=== PATIENT | male | born 1970 | race Two or more races ===

== ENCOUNTER 2017-12-02 16:20 | Emergency (ER) | payer OTHER ==
[~2017-12-02] VITALS: Ht 172.7 cm; Wt 107.0 kg
[~2017-12-02 16:20] MED LIST: CORTIZONE-1099 GM TP; CYCLOBENZAPRINE10 MG PO; ELOCON45 G1 TP; ENALAPRIL MALEA10 MG; FLEXERIL10 MG PO; FLEXERYL; ULTRAM50 MG; ULTRAM50 MG PO; VASOTEC10 MG; VASOTEC10 MG PO; VASOTEC20 M1; VASOTEC20 M1 PO
== END 2017-12-02 18:06 | disposition home or self-care (01) ==
LOC: ER 16:20
DX: M54.5 Low back pain (principal)

== ENCOUNTER 2017-12-10 11:40 | Emergency (ER) | payer OTHER ==
[~2017-12-10] VITALS: Ht 172.7 cm; Wt 106.6 kg
[2017-12-10] MEDS ORDERED: LISINOPRIL20 MG PO (11:46)
== END 2017-12-10 13:57 | disposition home or self-care (01) ==
LOC: ER 11:40
DX: M54.5 Low back pain (principal)

== ENCOUNTER 2017-12-19 07:41 | Emergency (ER) | payer OTHER ==
[~2017-12-19] VITALS: Ht 172.7 cm; Wt 104.3 kg
[~2017-12-19 07:41] MED LIST changes: +LISINOPRIL20 MG PO
== END 2017-12-19 09:45 | disposition home or self-care (01) ==
LOC: ER 07:41
DX: M54.5 Low back pain (principal)

== ENCOUNTER 2017-12-25 08:06 | Emergency (ER) | payer OTHER ==
[~2017-12-25] VITALS: Ht 172.7 cm; Wt 104.3 kg
[2017-12-25] MEDS ORDERED: KETO10TA2 PO (09:00)
[2017-12-25] MEDS ORDERED: NORFLEX100MG PO (09:00)
[2017-12-25] MEDS ORDERED: NEURONTIN800 MG PO (09:02)
[2017-12-25] MEDS ORDERED: ULTRAM50 MG PO (09:02)
[2017-12-25] MEDS ORDERED: TUSSI PRES-B L120 M1 PO (09:04)
[2017-12-29] MEDS ORDERED: NEURONTIN800 MG PO (11:43)
[2017-12-29] MEDS ORDERED: TRAMADOL HCL50 MG PO (11:43)
== END 2017-12-25 09:18 | disposition home or self-care (01) ==
LOC: ER 08:06
DX: M54.5 Low back pain (principal)

== ENCOUNTER → 2018-01-01 | Emergency (ER) | payer OTHER ==
[~2018-01-01] MED LIST changes: +KETO10TA2 PO; +NEURONTIN800 MG PO; +NORFLEX100MG PO; +TRAMADOL HCL50 MG PO; +TUSSI PRES-B L120 M1 PO
== END | disposition left against medical advice (07) ==
LOC: ER 11:42
DX: Z53.20 Procedure and treatment not carried out because of patient's decision for unspecified reasons (principal)

== ENCOUNTER 2018-01-12 14:27 | Emergency (ER) | payer OTHER ==
[~2018-01-12] VITALS: Ht 172.7 cm; Wt 107.0 kg
[2018-01-13] MEDS ORDERED: NEURONTIN800 MG PO (13:37)
[2018-01-13] MEDS ORDERED: LISINOPRIL20 MG PO (13:37)
== END 2018-01-12 22:21 | disposition home or self-care (01) ==
LOC: ER 14:27
DX: L02.512 Cutaneous abscess of left hand (principal)

== ENCOUNTER 2018-01-13 11:25 | Emergency (ER) | payer OTHER ==
[~2018-01-13] VITALS: Ht 175.3 cm; Wt 79.4 kg
[2018-01-13] MEDS ORDERED: LISINOPRIL20 MG PO (13:37)
[2018-01-13] MEDS ORDERED: NEURONTIN800 MG PO (13:37)
== END 2018-01-13 13:43 | disposition home or self-care (01) ==
LOC: ER 11:25
DX: M54.89 Other dorsalgia (principal)

== ENCOUNTER → 2018-12-22 | Emergency (ER) | payer OTHER ==
[~2018-12-22] VITALS: Ht 172.7 cm; Wt 104.3 kg
== END | disposition home or self-care (01) ==
LOC: ER 20:56
DX: M54.5 Low back pain (principal)

== ENCOUNTER 2019-01-31 11:55 | Emergency (ER) | payer OTHER ==
[~2019-01-31] VITALS: Ht 172.7 cm; Wt 104.3 kg
[2019-01-31] MEDS ORDERED: augmentin PO (18:14)
[2019-01-31] MEDS ORDERED: ULTRACET PO (18:14)
== END 2019-01-31 19:41 | disposition home or self-care (01) ==
LOC: ER 11:55
DX: J34.0 Abscess, furuncle and carbuncle of nose (principal)

== ENCOUNTER 2019-04-03 07:35 | Emergency (ER) | payer OTHER ==
[~2019-04-03] VITALS: Ht 167.6 cm; Wt 111.6 kg
[~2019-04-03 07:35] MED LIST changes: +ULTRACET PO; +augmentin PO
== END 2019-04-03 08:42 | disposition home or self-care (01) ==
LOC: ER 07:35
DX: M54.5 Low back pain (principal)

== ENCOUNTER 2019-06-15 05:05 | Emergency (ER) | payer OTHER ==
[~2019-06-15] VITALS: Ht 172.7 cm; Wt 113.4 kg
[2019-06-15] MEDS ORDERED: LISINOPRIL20 MG (05:25)
[2019-06-15] MEDS ORDERED: NORFLEX100MG PO (07:14)
[2019-06-15] MEDS ORDERED: MOBIC15 MG PO (07:14)
[2019-06-15] MEDS ORDERED: MUPIROCIN22 GM TOP (07:14)
[2019-06-15] MEDS ORDERED: RANITIDINE HCL300 MG PO (07:15)
== END 2019-06-15 07:36 | disposition home or self-care (01) ==
LOC: ER 05:05
DX: M54.5 Low back pain (principal)

== ENCOUNTER 2019-06-28 01:13 | Emergency (ER) | payer OTHER ==
[~2019-06-28] VITALS: Ht 152.4 cm; Wt 108.9 kg
[~2019-06-28 01:13] MED LIST changes: +LISINOPRIL20 MG; +MOBIC15 MG PO; +MUPIROCIN22 GM TOP; +RANITIDINE HCL300 MG PO
[2019-06-28] MEDS ORDERED: MEDROLPACK PO (06:36)
[2019-06-28] MEDS ORDERED: KETO10TA2 PO (06:36)
== END 2019-06-28 06:40 | disposition home or self-care (01) ==
LOC: ER 01:13
DX: M25.562 Pain in left knee (principal); M25.561 Pain in right knee

== ENCOUNTER 2019-06-28 16:36 | Emergency (ER) | payer OTHER ==
[~2019-06-28] VITALS: Ht 172.7 cm; Wt 115.2 kg
[~2019-06-28 16:36] MED LIST changes: +MEDROLPACK PO
== END 2019-06-28 19:15 | disposition home or self-care (01) ==
LOC: ER 16:36
DX: S76.012A Strain of muscle, fascia and tendon of left hip, initial encounter (principal); S86.812A Strain of other muscle(s) and tendon(s) at lower leg level, left leg, initial encounter; S86.811A Strain of other muscle(s) and tendon(s) at lower leg level, right leg, initial encounter; X50.0XXA Overexertion from strenuous movement or load, initial encounter; Y93.89 Activity, other specified; Y92.098 Other place in other non-institutional residence as the place of occurrence of the external cause; Y99.8 Other external cause status

== ENCOUNTER → 2019-07-18 | Emergency (ER) | payer OTHER ==
[~2019-07-18] VITALS: Ht 167.6 cm; Wt 158.8 kg
[~2019-07-18] MED LIST changes: +ORPHENADRINE C100 MG PO
== END | disposition home or self-care (01) ==
LOC: ER 00:27
DX: M54.5 Low back pain (principal)

== ENCOUNTER 2020-01-08 19:25 | Emergency (ER) | payer OTHER ==
[~2020-01-08] VITALS: Ht 172.7 cm; Wt 120.7 kg
[2020-01-08] MEDS ORDERED: NEURONTIN300 MG (19:54)
== END 2020-01-09 00:45 | disposition home or self-care (01) ==
LOC: ER 19:25
DX: M51.26 Other intervertebral disc displacement, lumbar region (principal)

== ENCOUNTER 2020-01-16 07:35 | Emergency (ER) | payer OTHER ==
[~2020-01-16] VITALS: Ht 172.7 cm; Wt 120.7 kg
[~2020-01-16 07:35] MED LIST changes: +NEURONTIN300 MG
[2020-01-16] MEDS ORDERED: VOLTAREN-XR100 MG PO (09:57)
[2020-01-16] MEDS ORDERED: CYCLOBENZAPRINE10 MG PO (09:57)
[2020-01-16] MEDS ORDERED: ORPHENADRINE C100 MG PO (09:57)
== END 2020-01-16 10:05 | disposition home or self-care (01) ==
LOC: ER 07:35
DX: M54.5 Low back pain (principal)

== ENCOUNTER 2020-01-22 09:38 | Emergency (ER) | payer OTHER ==
[~2020-01-22] VITALS: Ht 172.7 cm; Wt 120.7 kg
[~2020-01-22 09:38] MED LIST changes: +VOLTAREN-XR100 MG PO
== END 2020-01-22 11:04 | disposition home or self-care (01) ==
LOC: ER 09:38
DX: S33.5XXA Sprain of ligaments of lumbar spine, initial encounter (principal); X50.0XXA Overexertion from strenuous movement or load, initial encounter; Y93.89 Activity, other specified; Y92.098 Other place in other non-institutional residence as the place of occurrence of the external cause; Y99.8 Other external cause status

== ENCOUNTER 2020-03-17 07:45 | Emergency (ER) | payer OTHER ==
[~2020-03-17] VITALS: Ht 172.7 cm; Wt 111.1 kg
== END 2020-03-17 11:10 | disposition home or self-care (01) ==
LOC: ER 07:45
DX: L03.115 Cellulitis of right lower limb (principal); S90.561S Insect bite (nonvenomous), right ankle, sequela; W57.XXXS Bitten or stung by nonvenomous insect and other nonvenomous arthropods, sequela

== ENCOUNTER 2020-03-18 17:20 | Emergency (ER) | payer OTHER ==
[~2020-03-18] VITALS: Ht 172.7 cm; Wt 111.1 kg
== END 2020-03-19 11:15 | disposition left against medical advice (07) ==
LOC: ER 17:20
DX: L03.115 Cellulitis of right lower limb (principal); I87.2 Venous insufficiency (chronic) (peripheral)

== ENCOUNTER 2020-03-20 11:45 | Inpatient (IN) | payer OTHER ==
[~2020-03-20] VITALS: Ht 175.3 cm; Wt 113.4 kg
== END 2020-03-22 09:04 | disposition left against medical advice (07) | DRG 603 ==
LOC: ER 11:45 → SEC-K 15:26 → SURH 15:26
PROVIDERS: ADMIT Internal Medicine
PROC: 8E0ZXY6 Isolation (ICD-10-PCS; principal; 2020-03-20)
DX: L03.115 Cellulitis of right lower limb (principal); S90.861A Insect bite (nonvenomous), right foot, initial encounter; I10 Essential (primary) hypertension; E66.09 Other obesity due to excess calories

== ENCOUNTER 2020-03-24 21:42 | Emergency (ER) | payer OTHER ==
[~2020-03-24] VITALS: Ht 172.7 cm; Wt 113.4 kg
== END 2020-03-25 01:30 | disposition home or self-care (01) ==
LOC: ER 21:42
DX: L03.115 Cellulitis of right lower limb (principal)

== ENCOUNTER → 2020-06-05 | Emergency (ER) | payer OTHER ==
[~2020-06-05] VITALS: Ht 172.7 cm; Wt 111.1 kg
== END | disposition left against medical advice (07) ==
LOC: ER 06:52
DX: Z53.20 Procedure and treatment not carried out because of patient's decision for unspecified reasons (principal)

== ENCOUNTER 2020-06-27 11:17 | Emergency (ER) | payer OTHER ==
[~2020-06-27] VITALS: Ht 172.7 cm; Wt 111.1 kg
[2020-06-27] MEDS ORDERED: LASIX20 MG PO (11:27)
[2020-06-27] MEDS ORDERED: MUPIROCIN22 GM TOP (14:18)
[2020-06-27] MEDS ORDERED: KETO10TA2 PO (14:18)
[2020-06-27] MEDS ORDERED: AMOX-CLAV 875-1 EACH PO (14:18)
== END 2020-06-27 14:34 | disposition home or self-care (01) ==
LOC: ER 11:17
DX: H05.012 Cellulitis of left orbit (principal); Z03.818 Encounter for observation for suspected exposure to other biological agents ruled out

== ENCOUNTER 2020-07-11 12:32 | Emergency (ER) | payer OTHER ==
[~2020-07-11] VITALS: Ht 172.7 cm; Wt 113.4 kg
[~2020-07-11 12:32] MED LIST changes: +AMOX-CLAV 875-1 EACH PO; +LASIX20 MG PO
[2020-07-11] MEDS ORDERED: KETO10TA2 PO (13:08)
[2020-07-11] MEDS ORDERED: NORFLEX100MG PO (13:08)
== END 2020-07-11 14:29 | disposition home or self-care (01) ==
LOC: ER 12:32
DX: M54.5 Low back pain (principal)

== ENCOUNTER → 2020-07-14 | Emergency (ER) | payer OTHER ==
[~2020-07-14] VITALS: Ht 172.7 cm; Wt 113.4 kg
== END | disposition left against medical advice (07) ==
LOC: ER 08:51
DX: M62.830 Muscle spasm of back (principal)

== ENCOUNTER → 2020-09-11 | Emergency (ER) | payer OTHER ==
[~2020-09-11] VITALS: Ht 172.7 cm; Wt 117.9 kg
[~2020-09-11] MED LIST changes: +PERCOCET 5-3251 EACH PO
== END | disposition home or self-care (01) ==
LOC: ER 16:45
DX: M54.5 Low back pain (principal)

== ENCOUNTER 2020-09-16 14:30 | Emergency (ER) | payer OTHER ==
[~2020-09-16] VITALS: Ht 172.7 cm; Wt 117.9 kg
[~2020-09-16 14:30] MED LIST changes: -PERCOCET 5-3251 EACH PO
[2020-09-16] MEDS ORDERED: PERCOCET 5-3251 EACH PO (17:31)
== END 2020-09-16 17:59 | disposition home or self-care (01) ==
LOC: ER 14:30
DX: M54.5 Low back pain (principal)

== ENCOUNTER → 2020-09-22 | Emergency (ER) | payer OTHER ==
[~2020-09-22] MED LIST changes: +NABUMETONE750 MG PO; +PERCOCET 5-3251 EACH PO
== END | disposition left against medical advice (07) ==
LOC: ER 06:55
DX: Z53.20 Procedure and treatment not carried out because of patient's decision for unspecified reasons (principal)

== ENCOUNTER 2020-09-24 09:48 | Emergency (ER) | payer OTHER ==
[~2020-09-24] VITALS: Ht 172.7 cm; Wt 117.9 kg
[~2020-09-24 09:48] MED LIST changes: -NABUMETONE750 MG PO
[2020-09-24] MEDS ORDERED: PERCOCET 5-3251 EACH PO (11:05)
== END 2020-09-24 11:19 | disposition home or self-care (01) ==
LOC: ER 09:48
DX: M54.89 Other dorsalgia (principal)

== ENCOUNTER 2020-10-01 06:57 | Emergency (ER) | payer OTHER ==
[~2020-10-01] VITALS: Ht 172.7 cm; Wt 117.9 kg
[2020-10-01] MEDS ORDERED: PERCOCET 5-3251 EACH PO (09:19)
[2020-10-01] MEDS ORDERED: CYCLOBENZAPRINE10 MG PO (09:19)
[2020-10-01] MEDS ORDERED: NABUMETONE750 MG PO (09:19)
== END 2020-10-01 09:25 | disposition home or self-care (01) ==
LOC: ER 06:57
DX: M54.5 Low back pain (principal)

== ENCOUNTER 2020-10-13 11:28 | Emergency (ER) | payer OTHER ==
[~2020-10-13] VITALS: Ht 172.7 cm; Wt 116.1 kg
[~2020-10-13 11:28] MED LIST changes: +NABUMETONE750 MG PO
== END 2020-10-13 13:43 | disposition home or self-care (01) ==
LOC: ER 11:28
DX: M54.5 Low back pain (principal)

== ENCOUNTER 2020-10-30 11:10 | Emergency (ER) | payer OTHER ==
[~2020-10-30] VITALS: Ht 172.7 cm; Wt 117.9 kg
[2020-10-30] MEDS ORDERED: PERCOCET 5-3251 EACH PO (16:30)
[2020-10-30] MEDS ORDERED: VOLTAREN-XR100 MG PO (16:30)
[2020-10-30] MEDS ORDERED: SKELAXIN800 MG PO (16:30)
== END 2020-10-30 16:59 ==
LOC: ER 11:10
DX: M54.41 Lumbago with sciatica, right side (principal); M54.42 Lumbago with sciatica, left side

== ENCOUNTER 2020-11-15 16:28 | Emergency (ER) | payer OTHER ==
[~2020-11-15] VITALS: Ht 172.7 cm; Wt 117.9 kg
[~2020-11-15 16:28] MED LIST changes: +SKELAXIN800 MG PO
[2020-11-15] MEDS ORDERED: BACTRIM DS TAB1 EACH PO (17:54)
[2020-11-15] MEDS ORDERED: MUPIROCIN1 G1 TOP (17:54)
[2020-11-15] MEDS ORDERED: CYCLOBENZAPRINE10 MG PO (17:55)
[2020-11-15] MEDS ORDERED: DICLOFENAC SODI75 MG PO (17:55)
== END 2020-11-15 18:40 | disposition home or self-care (01) ==
LOC: ER 16:28
DX: L04.2 Acute lymphadenitis of upper limb (principal)

== ENCOUNTER 2020-12-10 14:25 | Emergency (ER) | payer OTHER ==
[~2020-12-10] VITALS: Ht 172.7 cm; Wt 117.9 kg
[~2020-12-10 14:25] MED LIST changes: +BACTRIM DS TAB1 EACH PO; +DICLOFENAC SODI75 MG PO; +MUPIROCIN1 G1 TOP
[2020-12-10] MEDS ORDERED: ZESTRIL20 MG PO (14:57)
== END 2020-12-10 17:54 | disposition home or self-care (01) ==
LOC: ER 14:25
DX: M43.16 Spondylolisthesis, lumbar region (principal)

== ENCOUNTER 2020-12-13 09:01 | Emergency (ER) | payer OTHER ==
[~2020-12-13] VITALS: Ht 172.7 cm; Wt 74.8 kg
[~2020-12-13 09:01] MED LIST changes: +ZESTRIL20 MG PO
[2020-12-13] MEDS ORDERED: SKELAXIN800 MG PO (10:26)
[2020-12-13] MEDS ORDERED: MEDROLPACK PO (10:26)
[2020-12-13] MEDS ORDERED: PERCOCET 5-3251 EACH PO (10:26)
[2020-12-13] MEDS ORDERED: KETO10TA2 PO (10:26)
== END 2020-12-13 10:34 | disposition home or self-care (01) ==
LOC: ER 09:01
DX: M54.5 Low back pain (principal)

== ENCOUNTER 2020-12-18 09:52 | Emergency (ER) | payer OTHER ==
[~2020-12-18] VITALS: Ht 172.7 cm; Wt 120.2 kg
[2020-12-18] MEDS ORDERED: PERCOCET 10-321 EACH (10:17)
[2020-12-18] MEDS ORDERED: PERCOCET 5-3251 EACH PO (10:44)
[2020-12-18] MEDS ORDERED: PEPCID AC20 MG PO (10:44)
== END 2020-12-18 10:53 | disposition home or self-care (01) ==
LOC: ER 09:52
DX: M54.5 Low back pain (principal)

== ENCOUNTER 2021-01-08 08:19 | Emergency (ER) | payer OTHER ==
[~2021-01-08] VITALS: Ht 172.7 cm; Wt 117.9 kg
[~2021-01-08 08:19] MED LIST changes: +PEPCID AC20 MG PO; +PERCOCET 10-321 EACH
[2021-01-08] MEDS ORDERED: HYDROCHLOROTH12.5 MG (08:38)
[2021-01-08] MEDS ORDERED: PERCOCET 5-3251 EACH PO (08:58)
[2021-01-08] MEDS ORDERED: NABUMETONE750 MG PO (08:58)
== END 2021-01-08 09:20 | disposition home or self-care (01) ==
LOC: ER 08:19
DX: M54.5 Low back pain (principal)

== ENCOUNTER 2021-01-21 13:32 | Emergency (ER) | payer OTHER ==
[~2021-01-21] VITALS: Ht 172.7 cm; Wt 117.9 kg
[~2021-01-21 13:32] MED LIST changes: +HYDROCHLOROTH12.5 MG
[2021-01-21] MEDS ORDERED: PERCOCET 5-3251 EACH PO (15:50)
== END 2021-01-21 16:17 | disposition home or self-care (01) ==
LOC: ER 13:32
DX: M54.5 Low back pain (principal)

== ENCOUNTER 2021-02-06 01:26 | Emergency (ER) | payer OTHER ==
[~2021-02-06] VITALS: Ht 180.3 cm; Wt 74.8 kg
[2021-02-06] MEDS ORDERED: PERCOCET 5-3251 EACH PO (02:07)
[2021-02-06] MEDS ORDERED: LISINOPRIL20 MG PO (02:14)
[2021-02-06] MEDS ORDERED: PEPCID40 MG PO (02:14)
[2021-02-06] MEDS ORDERED: NABUMETONE750 MG PO (02:14)
[2021-02-11] MEDS ORDERED: MUCINEX DM ER1 EAC1 PO (17:21)
[2021-02-11] MEDS ORDERED: PERCOCET 5-3251 EACH PO (17:21)
[2021-02-11] MEDS ORDERED: KETOCONAZOLE 2%30 GM TOP (17:21)
[2021-02-11] MEDS ORDERED: BETAMETHASONE D15 G5 TOP (17:21)
== END 2021-02-06 02:19 | disposition home or self-care (01) ==
LOC: ER 01:26
DX: M54.5 Low back pain (principal)

== ENCOUNTER 2021-02-08 15:03 | Emergency (ER) | payer OTHER ==
[~2021-02-08] VITALS: Ht 172.7 cm; Wt 117.9 kg
[~2021-02-08 15:03] MED LIST changes: +PEPCID40 MG PO
[2021-02-11] MEDS ORDERED: MUCINEX DM ER1 EAC1 PO (17:21)
[2021-02-11] MEDS ORDERED: PERCOCET 5-3251 EACH PO (17:21)
[2021-02-11] MEDS ORDERED: BETAMETHASONE D15 G5 TOP (17:21)
[2021-02-11] MEDS ORDERED: KETOCONAZOLE 2%30 GM TOP (17:21)
== END 2021-02-08 17:55 | disposition home or self-care (01) ==
LOC: ER 15:03
DX: M54.5 Low back pain (principal)

== ENCOUNTER 2021-02-25 10:22 | Emergency (ER) | payer OTHER ==
[~2021-02-25] VITALS: Ht 172.7 cm; Wt 117.9 kg
[~2021-02-25 10:22] MED LIST changes: +BETAMETHASONE D15 G5 TOP; +KETOCONAZOLE 2%30 GM TOP; +MUCINEX DM ER1 EAC1 PO
[2021-02-25] MEDS ORDERED: HYDROCHLOROTH12.5 MG PO (11:02)
[2021-02-25] MEDS ORDERED: PERCOCET 5-3251 EACH PO (11:02)
== END 2021-02-25 11:16 | disposition home or self-care (01) ==
LOC: ER 10:22
DX: M54.5 Low back pain (principal)

== ENCOUNTER 2021-03-04 07:41 | Emergency (ER) | payer OTHER ==
[~2021-03-04] VITALS: Ht 172.7 cm; Wt 117.9 kg
[~2021-03-04 07:41] MED LIST changes: +HYDROCHLOROTH12.5 MG PO
[2021-03-04] MEDS ORDERED: RELAFEN DS1000 MG (07:52)
[2021-03-04] MEDS ORDERED: PERCOCET 5-3251 EACH PO (09:02)
[2021-03-04] MEDS ORDERED: CLOTRIMAZOLE/BE15 GM TOP (09:08)
== END 2021-03-04 09:13 | disposition home or self-care (01) ==
LOC: ER 07:41
DX: M54.5 Low back pain (principal)

== ENCOUNTER → 2021-03-11 | Emergency (ER) | payer OTHER ==
[~2021-03-11] VITALS: Ht 172.7 cm; Wt 115.7 kg
[~2021-03-11] MED LIST changes: +CLOTRIMAZOLE/BE15 GM TOP; +RELAFEN DS1000 MG
== END | disposition left against medical advice (07) ==
LOC: ER 12:04
DX: Z53.20 Procedure and treatment not carried out because of patient's decision for unspecified reasons (principal)

== ENCOUNTER 2021-03-20 07:06 | Emergency (ER) | payer OTHER ==
[~2021-03-20] VITALS: Ht 180.3 cm; Wt 117.9 kg
[2021-03-20] MEDS ORDERED: ULTRAM50 MG PO (08:31)
== END 2021-03-20 08:46 | disposition home or self-care (01) ==
LOC: ER 07:06
DX: S39.012A Strain of muscle, fascia and tendon of lower back, initial encounter (principal); X50.0XXA Overexertion from strenuous movement or load, initial encounter; Y93.89 Activity, other specified; Y92.89 Other specified places as the place of occurrence of the external cause; Y99.8 Other external cause status

== ENCOUNTER 2021-04-04 07:29 | Emergency (ER) | payer OTHER ==
[~2021-04-04] VITALS: Ht 172.7 cm; Wt 117.9 kg
[2021-04-04] MEDS ORDERED: CYCLOBENZAPRINE10 MG PO (09:29)
[2021-04-04] MEDS ORDERED: DICLOFENAC SOD100 MG PO (09:29)
[2021-04-04] MEDS ORDERED: PERCOCET 5-3251 EACH PO (09:29)
== END 2021-04-04 09:43 | disposition home or self-care (01) ==
LOC: ER 07:29
DX: M25.562 Pain in left knee (principal); M25.561 Pain in right knee

== ENCOUNTER → 2021-04-06 | Emergency (ER) | payer OTHER ==
[~2021-04-06] VITALS: Ht 172.7 cm; Wt 102.1 kg
[~2021-04-06] MED LIST changes: +ASA81 MG PO; +DICLOFENAC SOD100 MG PO
== END | disposition left against medical advice (07) ==
LOC: ER 08:27
DX: Z53.20 Procedure and treatment not carried out because of patient's decision for unspecified reasons (principal)

== ENCOUNTER 2021-04-10 08:26 | Emergency (ER) | payer OTHER ==
[~2021-04-10] VITALS: Ht 172.7 cm; Wt 115.7 kg
[~2021-04-10 08:26] MED LIST changes: -ASA81 MG PO
[2021-04-10] MEDS ORDERED: HYDROCHLOROTH12.5 MG PO (17:06)
[2021-04-10] MEDS ORDERED: PERCOCET 5-3251 EACH PO (17:07)
== END 2021-04-10 18:56 | disposition home or self-care (01) ==
LOC: ER 08:26
DX: I87.2 Venous insufficiency (chronic) (peripheral) (principal); R60.0 Localized edema

== ENCOUNTER 2021-04-14 22:49 | Emergency (ER) | payer OTHER ==
[~2021-04-14] VITALS: Ht 172.7 cm; Wt 115.7 kg
[2021-04-15] MEDS ORDERED: LASIX20 MG PO (05:25)
[2021-04-15] MEDS ORDERED: PERCOCET 5-3251 EACH PO (08:57)
== END 2021-04-15 05:34 | disposition home or self-care (01) ==
LOC: ER 22:49
DX: R60.0 Localized edema (principal)

== ENCOUNTER 2021-04-15 08:42 | Emergency (ER) | payer OTHER ==
[~2021-04-15] VITALS: Ht 172.7 cm; Wt 115.7 kg
[2021-04-15] MEDS ORDERED: PERCOCET 5-3251 EACH PO (08:57)
== END 2021-04-15 09:31 | disposition home or self-care (01) ==
LOC: ER 08:42
DX: M79.662 Pain in left lower leg (principal); M79.661 Pain in right lower leg; M54.89 Other dorsalgia

== ENCOUNTER 2021-04-18 02:35 | Emergency (ER) | payer OTHER ==
[~2021-04-18] VITALS: Ht 172.7 cm; Wt 115.7 kg
[2021-04-18] MEDS ORDERED: ASA81 MG PO ×2 (08:37→08:38)
== END 2021-04-18 08:55 | disposition home or self-care (01) ==
LOC: ER 02:35
DX: R60.0 Localized edema (principal)

== ENCOUNTER 2021-04-21 08:59 | Emergency (ER) | payer OTHER ==
[~2021-04-21] VITALS: Ht 180.3 cm; Wt 127.0 kg
[~2021-04-21 08:59] MED LIST changes: +ASA81 MG PO
== END 2021-04-21 12:36 | disposition home or self-care (01) ==
LOC: ER 08:59
DX: M54.42 Lumbago with sciatica, left side (principal); M54.41 Lumbago with sciatica, right side

== ENCOUNTER → 2021-04-24 | Emergency (ER) | payer OTHER ==
[~2021-04-24] VITALS: Ht 172.7 cm; Wt 122.5 kg
[~2021-04-24] MED LIST changes: +ECOTRIN81 MG PO; +PEPCID AC10 MG PO
== END | disposition home or self-care (01) ==
LOC: ER 15:55
DX: M54.5 Low back pain (principal)

== ENCOUNTER 2021-05-05 14:48 | Emergency (ER) | payer OTHER ==
[~2021-05-05] VITALS: Ht 172.7 cm; Wt 122.0 kg
[~2021-05-05 14:48] MED LIST changes: -ECOTRIN81 MG PO; -PEPCID AC10 MG PO
[2021-05-05] MEDS ORDERED: ECOTRIN81 MG PO (15:15)
[2021-05-05] MEDS ORDERED: PEPCID AC10 MG PO (15:15)
== END 2021-05-05 15:55 | disposition home or self-care (01) ==
LOC: ER 14:48
DX: M54.5 Low back pain (principal)

== ENCOUNTER 2021-05-10 10:14 | Emergency (ER) | payer OTHER ==
[~2021-05-10] VITALS: Ht 172.7 cm; Wt 119.3 kg
[~2021-05-10 10:14] MED LIST changes: +ECOTRIN81 MG PO; +PEPCID AC10 MG PO
[2021-05-10] MEDS ORDERED: NABUMETONE500 MG PO (12:59)
[2021-05-10] MEDS ORDERED: LASIX20 MG PO (12:59)
== END 2021-05-10 13:51 | disposition home or self-care (01) ==
LOC: ER 10:14
DX: S33.5XXA Sprain of ligaments of lumbar spine, initial encounter (principal); X50.0XXA Overexertion from strenuous movement or load, initial encounter; Y93.89 Activity, other specified; Y92.89 Other specified places as the place of occurrence of the external cause; Y99.8 Other external cause status

== ENCOUNTER → 2021-05-13 | Emergency (ER) | payer OTHER ==
[~2021-05-13] VITALS: Ht 172.7 cm; Wt 117.5 kg
[~2021-05-13] MED LIST changes: +NABUMETONE500 MG PO; +NEURONTIN800 MG
== END | disposition left against medical advice (07) ==
LOC: ER 19:19
DX: Z53.20 Procedure and treatment not carried out because of patient's decision for unspecified reasons (principal)

== ENCOUNTER 2021-06-15 08:09 | Emergency (ER) | payer OTHER ==
[~2021-06-15] VITALS: Ht 172.7 cm; Wt 119.7 kg
[~2021-06-15 08:09] MED LIST changes: -NEURONTIN800 MG
[2021-06-15] MEDS ORDERED: NEURONTIN800 MG (08:21)
== END 2021-06-15 11:28 | disposition home or self-care (01) ==
LOC: ER 08:09
DX: M54.5 Low back pain (principal); M25.561 Pain in right knee

== ENCOUNTER 2021-06-25 23:58 | Emergency (ER) | payer OTHER ==
[~2021-06-25] VITALS: Ht 162.6 cm; Wt 120.7 kg
[~2021-06-25 23:58] MED LIST changes: +NEURONTIN800 MG
[2021-06-26] MEDS ORDERED: MOBIC15 MG PO (06:05)
[2021-06-26] MEDS ORDERED: LASIX20 MG PO (06:05)
== END 2021-06-26 06:32 | disposition home or self-care (01) ==
LOC: ER 23:58
DX: M79.662 Pain in left lower leg (principal); M79.661 Pain in right lower leg; M79.89 Other specified soft tissue disorders; R60.9 Edema, unspecified; I99.9 Unspecified disorder of circulatory system

== ENCOUNTER 2021-08-05 21:03 | Emergency (ER) | payer OTHER ==
[~2021-08-05] VITALS: Ht 172.7 cm; Wt 122.5 kg
[2021-08-05] MEDS ORDERED: PERCOCET 5-3251 EACH PO (22:09)
[2021-08-05] MEDS ORDERED: PEPCID AC20 MG PO (22:25)
== END 2021-08-05 22:44 | disposition home or self-care (01) ==
LOC: ER 21:03
DX: I87.2 Venous insufficiency (chronic) (peripheral) (principal); R60.0 Localized edema

== ENCOUNTER 2021-08-21 03:09 | Emergency (ER) | payer OTHER ==
[~2021-08-21] VITALS: Ht 172.7 cm; Wt 12.2 kg
== END 2021-08-21 10:20 | disposition left against medical advice (07) ==
LOC: ER 03:09
DX: M51.26 Other intervertebral disc displacement, lumbar region (principal); I10 Essential (primary) hypertension

== ENCOUNTER 2021-09-02 02:02 | Emergency (ER) | payer OTHER ==
[~2021-09-02] VITALS: Ht 172.7 cm; Wt 124.3 kg
[2021-09-02] MEDS ORDERED: KETO10TA2 PO (03:06)
[2021-09-02] MEDS ORDERED: ORPHENADRINE C100 MG PO (03:06)
[2021-09-02] MEDS ORDERED: CILOSTAZOL50 MG PO (03:11)
== END 2021-09-02 03:31 ==
LOC: ER 02:02
DX: M54.59 Other low back pain (principal)

== ENCOUNTER 2021-09-09 18:07 | Emergency (ER) | payer OTHER ==
[~2021-09-09] VITALS: Ht 172.7 cm; Wt 122.5 kg
[~2021-09-09 18:07] MED LIST changes: +CILOSTAZOL50 MG PO
[2021-09-09] MEDS ORDERED: PERCOCET 5-3251 EACH PO (22:31)
== END 2021-09-09 22:47 | disposition home or self-care (01) ==
LOC: ER 18:07
DX: M62.830 Muscle spasm of back (principal)

== ENCOUNTER 2021-09-17 07:19 | Emergency (ER) | payer OTHER ==
[~2021-09-17] VITALS: Ht 172.7 cm; Wt 123.8 kg
[2021-09-17] MEDS ORDERED: CYCLOBENZAPRINE10 MG PO (09:02)
[2021-09-17] MEDS ORDERED: KETO10TA2 PO (09:02)
[2021-09-17] MEDS ORDERED: SKELAGESIC PO (09:02)
== END 2021-09-17 09:27 ==
LOC: ER 07:19
DX: M62.830 Muscle spasm of back (principal)

== ENCOUNTER 2021-10-06 19:32 | Emergency (ER) | payer OTHER ==
[~2021-10-06] VITALS: Ht 172.7 cm; Wt 112.5 kg
[~2021-10-06 19:32] MED LIST changes: +SKELAGESIC PO
== END 2021-10-06 23:26 | disposition home or self-care (01) ==
LOC: ER 19:32
DX: M54.50 Low back pain, unspecified (principal); I10 Essential (primary) hypertension

== ENCOUNTER → 2022-04-12 | Emergency (ER) | payer OTHER ==
[~2022-04-12] VITALS: Ht 172.7 cm; Wt 113.4 kg
== END | disposition left against medical advice (07) ==
LOC: ER 07:56
DX: Z53.21 Procedure and treatment not carried out due to patient leaving prior to being seen by health care provider (principal)

== ENCOUNTER 2022-04-16 07:27 | Emergency (ER) | payer OTHER ==
[~2022-04-16] VITALS: Ht 172.7 cm; Wt 113.4 kg
[2022-04-16] MEDS ORDERED: NEURONTIN800 MG PO (07:40)
== END 2022-04-16 09:53 | disposition home or self-care (01) ==
LOC: ER 07:27
DX: M51.27 Other intervertebral disc displacement, lumbosacral region (principal); I10 Essential (primary) hypertension

== ENCOUNTER → 2023-04-12 | Emergency (ER) | payer OTHER ==
[~2023-04-12] VITALS: Ht 165.1 cm; Wt 113.4 kg
== END | disposition home or self-care (01) ==
LOC: ER 08:57
DX: M54.50 Low back pain, unspecified (principal); I10 Essential (primary) hypertension

== ENCOUNTER → 2023-04-21 | Emergency (ER) | payer OTHER ==
[~2023-04-21] VITALS: Ht 172.7 cm; Wt 117.9 kg
== END | disposition left against medical advice (07) ==
LOC: ER 14:34
DX: Z53.21 Procedure and treatment not carried out due to patient leaving prior to being seen by health care provider (principal)

== ENCOUNTER → 2023-04-25 | Emergency (ER) | payer OTHER ==
[~2023-04-25] VITALS: Ht 165.1 cm; Wt 117.9 kg
[~2023-04-25] MED LIST changes: +LASIX20 MG; +NORVASC2.5 M1
== END | disposition left against medical advice (07) ==
LOC: ER 04:30
DX: Z53.21 Procedure and treatment not carried out due to patient leaving prior to being seen by health care provider (principal)

== ENCOUNTER 2023-06-20 01:28 | Emergency (ER) | payer OTHER ==
[~2023-06-20] VITALS: Ht 172.7 cm; Wt 123.8 kg
[2023-06-20] MEDS ORDERED: LASIX20 MG PO (07:41)
[2023-06-20] MEDS ORDERED: DICLOFENAC POTA50 MG PO (07:42)
== END 2023-06-20 07:53 | disposition home or self-care (01) ==
LOC: ER 01:28
DX: I87.2 Venous insufficiency (chronic) (peripheral) (principal); R60.0 Localized edema; I10 Essential (primary) hypertension

== ENCOUNTER → 2023-06-23 | Emergency (ER) | payer OTHER ==
[~2023-06-23] VITALS: Ht 172.7 cm; Wt 124.3 kg
[~2023-06-23] MED LIST changes: +DICLOFENAC POTA50 MG PO
== END | disposition left against medical advice (07) ==
LOC: ER 07:17
DX: Z53.21 Procedure and treatment not carried out due to patient leaving prior to being seen by health care provider (principal)

== ENCOUNTER 2023-09-06 07:10 | Emergency (ER) | payer OTHER ==
[~2023-09-06] VITALS: Ht 172.7 cm; Wt 129.7 kg
[2023-09-06] MEDS ORDERED: ATORVASTATIN CA10 MG PO (07:34)
== END 2023-09-06 10:33 | disposition home or self-care (01) ==
LOC: ER 07:10
DX: I10 Essential (primary) hypertension (principal)

== ENCOUNTER 2023-09-09 00:27 | Emergency (ER) | payer OTHER ==
[~2023-09-09] VITALS: Ht 172.7 cm; Wt 129.7 kg
[~2023-09-09 00:27] MED LIST changes: +ATORVASTATIN CA10 MG PO
[2023-09-09] MEDS ORDERED: NORFLEX100MG PO (02:18)
== END 2023-09-09 02:23 | disposition home or self-care (01) ==
LOC: ER 00:27
DX: M54.50 Low back pain, unspecified (principal)

== ENCOUNTER 2023-10-04 03:29 | Emergency (ER) | payer OTHER ==
[~2023-10-04] VITALS: Ht 172.7 cm; Wt 129.7 kg
[2023-10-04] MEDS ORDERED: LASIX40 MG (03:47)
[2023-10-04] MEDS ORDERED: PEPCID AC20 MG (03:48)
[2023-10-04] MEDS ORDERED: LIPITOR20 MG PO (03:48)
== END 2023-10-04 05:10 | disposition home or self-care (01) ==
LOC: ER 03:29
DX: M54.16 Radiculopathy, lumbar region (principal)

== ENCOUNTER 2024-02-06 07:42 | Emergency (ER) | payer OTHER ==
[~2024-02-06] VITALS: Ht 172.7 cm; Wt 131.5 kg
[~2024-02-06 07:42] MED LIST changes: +LASIX40 MG; +LIPITOR20 MG PO; +PEPCID AC20 MG
[2024-02-06] MEDS ORDERED: ZESTRIL40 M1 PO (08:07)
[2024-02-06] MEDS ORDERED: KETOROLAC TROMETHAMINE 60 MG VIAL IM STA (08:27)
== END 2024-02-06 09:01 | disposition home or self-care (01) ==
LOC: ER 07:42
DX: M54.50 Low back pain, unspecified (principal); I10 Essential (primary) hypertension; S33.5XXA Sprain of ligaments of lumbar spine, initial encounter
CPT/HCPCS: 96372; 99282; J1885

== ENCOUNTER → 2024-12-07 | Emergency (ER) | payer OTHER ==
[~2024-12-07] VITALS: Ht 165.1 cm; Wt 136.1 kg
[~2024-12-07] MED LIST changes: +0.9 % SODIUM CHLORIDE 1,000 ML IV STA; +CEFTRIAXONE SODIUM 1,000 MG VIAL IV STA; +CEFTRIAXONE SODIUM 1,000 MG VIAL ONE; +CLOPIDOGREL BISULFATE 75 MG TABLET PO ONE; +CLOPIDOGREL BISULFATE 75 MG TABLET PO STA; +COZAAR25 MG PO; +KETOROLAC TROMETHAMINE 60 MG VIAL IM ONE; +KETOROLAC TROMETHAMINE 60 MG VIAL IM STA; +PERCOCET 5-3251 EACH; +ZESTRIL40 M1 PO
[2024-12-08 00:39] LABS: HEMATOCRIT 41.4 % (39.0-48.0); HEMOGLOBIN 14.2 g/dL (13-16.00); MEAN CELL VOLUME 93.9 fL (80.0-100.00); MEAN CORPUSCULAR HEMOGLOBIN 32.2 pg (27.00-32.0); MEAN CORPUSCULAR HGB CONC 34.3 g/dl (32.0-36.0); PLATELET COUNT 193 K/uL (150-450); RED BLOOD COUNT 4.42 M/uL (4.00-6.00); RED CELL DISTRIBUTION WIDTH 15.3 % (11.5-14.5)
[2024-12-08 00:57] LABS: D DIMER 1.27 MG/L; PARTIAL THROMBOPLASTIN TIME 27.2 SECONDS (22.0-34.0)
[2024-12-08 01:26] LABS: INR 0.98; PROTHROMBIN TIME 10.7 SECONDS (9.0-11.5)
[2024-12-08 01:38] LABS: ALBUMIN 3.3 gm/dL (3.4-5.0); BILIRUBIN TOTAL 0.51 mg/dL (0.3-1.2); CALCIUM 8.8 mg/dL (8.5-10.1); CREATININE SERUM 0.9 mg/dL (0.70-1.30); GFR 88.27; GLOBULINA 3.2 G/DL (2.4-3.5); POTASSIUM 4.6 mEq/L (3.5-5.1); TOTAL PROTEIN 6.5 gm/dL (6.4-8.2)
[2024-12-08 02:08] LABS: ERYTHROCYTE SEDIMENTATION RATE 18 mm/hr
[2024-12-08 08:08] VITALS: BP 150/100; O2SAT 99
== END | disposition home or self-care (01) ==
LOC: ER 19:08
DX: I87.2 Venous insufficiency (chronic) (peripheral) (principal); I10 Essential (primary) hypertension; E11.9 Type 2 diabetes mellitus without complications

== ENCOUNTER 2025-02-07 08:22 | Emergency (ER) | payer OTHER ==
[~2025-02-07] VITALS: Ht 172.7 cm; Wt 146.5 kg
[~2025-02-07 08:22] MED LIST changes: -0.9 % SODIUM CHLORIDE 1,000 ML IV STA; -CEFTRIAXONE SODIUM 1,000 MG VIAL IV STA; -CEFTRIAXONE SODIUM 1,000 MG VIAL ONE; -CLOPIDOGREL BISULFATE 75 MG TABLET PO ONE; -CLOPIDOGREL BISULFATE 75 MG TABLET PO STA; -KETOROLAC TROMETHAMINE 60 MG VIAL IM ONE; -KETOROLAC TROMETHAMINE 60 MG VIAL IM STA
[2025-02-07] MEDS ORDERED: KETOROLAC TROMETHAMINE 60 MG VIAL IM STA (09:34)
[2025-02-07] MEDS ORDERED: ORPHENADRINE CITRATE 30 MG/ML AMPUL IM STA (09:34)
[2025-02-07] MEDS ORDERED: ORPHENADRINE CITRATE 30 MG/ML AMPUL ONE (09:42)
[2025-02-07] MEDS ORDERED: KETOROLAC TROMETHAMINE 60 MG VIAL IM ONE (09:43)
== END 2025-02-07 09:51 | disposition home or self-care (01) ==
LOC: ER 08:22
DX: M51.26 Other intervertebral disc displacement, lumbar region (principal); I10 Essential (primary) hypertension

== ENCOUNTER → 2025-10-23 | Emergency (ER) | payer OTHER ==
[~2025-10-23] VITALS: Ht 172.7 cm; Wt 140.2 kg
[~2025-10-23] MED LIST changes: +BUMETANIDE1 MG; +KETOROLAC TROMETHAMINE 60 MG VIAL IM ONE; +NEURONTIN300 MG PO; +ORPHENADRINE CITRATE 30 MG/ML AMPUL IM ONE; +ORPHENADRINE CITRATE 30 MG/ML AMPUL ONE; +OXYCODONE HCL10 M1; +PEPCID AC10 MG; +TOPROL XL50 M1; +TRAMADOL HCL E100 MG; +XARELTO2.5 MG; +ZESTRIL5 MG
[2025-10-23 09:26] VITALS: BP 170/110; O2SAT 98
== END | disposition home or self-care (01) ==
LOC: ER 08:50
DX: M54.50 Low back pain, unspecified (principal); Z86.72 Personal history of thrombophlebitis; I10 Essential (primary) hypertension